=== PATIENT | female | born 1945 | race Caucasian/White ===

== ENCOUNTER 2023-12-04 16:10 | Inpatient (IN) | payer MEDICARE, OTHER ==
[~2023-12-04] VITALS: Ht 160 cm; Wt 59.0 kg
[2023-12-04 17:28] LABS: *BILIRUBIN,URIN NEGATIVE (NEGATIVE); *BLOOD, URINE 1+ (NEGATIVE); *CLARITY,URINE CLEAR (CLEAR); *COLOR,URINE YELLOW (YELLOW); *KETONES,URINE TRACE (NEGATIVE); *PROTEIN,URINE NEGATIVE (NEGATIVE); *UROBILINOGEN,URINE 0.2 E.U./dl (NORMAL); LEUKOCYTE ESTERASE ,URINE NEGATIVE (NEGATIVE); NITRITE, URINE POSITIVE (NEGATIVE); PH,URINE 5.5 (5.0-8.0); UGLUCOSE NEGATIVE (NEGATIVE)
[2023-12-04 17:33] LABS: BACTERIA,URINE MANY /HPF (NONE SEEN)
[2023-12-04 17:34] LABS: BASOPHILS % (AUTO) 0.6 % (0.0-2.0); EOSINOPHILS % (AUTO) 0.4 % (0.0-7.0); HEMATOCRIT 38.1 % (31.2-41.9); HEMOGLOBIN 12.7 g/dL (10.9-14.3); LYMPHOCYTES # (AUTO) 1.3 K/uL (0.8-4.8); LYMPHOCYTES % (AUTO) 15.4 % (20.5-51.5); MEAN CORPUSCULAR HEMOGLOBIN 32.3 uug (24.7-32.8); MEAN CORPUSCULAR HGB CONC 33 g/dL (32.3-35.6); MEAN CORPUSCULAR VOLUME 96.6 fL (75.5-95.3); MONOCYTES # (AUTO) 1.1 K/uL (0.1-1.30); MONOCYTES % (AUTO) 13.2 % (0.0-11.0); NEUTROPHILS # (AUTO) 5.9 K/uL (1.8-8.9); NEUTROPHILS % (AUTO) 70.4 % (38.5-71.5); PLATELET COUNT (AUTO) 166 K/uL (179-408); RED BLOOD CELL COUNT(AUTO) 3.94 MIL/uL (3.63-4.92); RED CELL DISTRIBUTION WIDTH 13.5 % (12.3-17.7); WHITE BLOOD COUNT (AUTO) 8.3 K/uL (3.8-11.8)
[2023-12-04 17:34] LABS: SQUAMOUS EPITHELIAL CELL,UR FEW /HPF (NONE SEEN)
[2023-12-04 17:43] LABS: *AMPHETAMINE, URINE NEGATIVE (NEGATIVE); *BARBITURATE, URINE NEGATIVE (NEGATIVE); *BENZODIAZEPINE, URINE NEGATIVE (NEGATIVE); *CANNABINOID, URINE NEGATIVE (NEGATIVE); *COCCAINE, URINE NEGATIVE (NEGATIVE); *OPIATE, URINE POSITIVE (NEGATIVE); *PHENCYCLIDINE SCREEN,URINE NEGATIVE (NEGATIVE)
[2023-12-04 17:56] LABS: AMMONIA < 10 umol/L (11-32)
[2023-12-04 17:59] LABS: THYROID STIMULATING HORMONE 1.731 mIU/mL (0.358-3.740)
[2023-12-04 18:03] LABS: CALCIUM 8.8 mg/dL (8.5-10.1); CARBON DIOXIDE 22 mmol/L (21-32); CHLORIDE 103 mmol/L (98-107); CREATININE 0.8 mg/dL (0.6-1.3); GLUCOSE 130 mg/dL (74-106); SODIUM SERUM 139 mmol/L (136-145); UREA NITROGEN, BLOOD 15 mg/dL (7-18)
[2023-12-04 18:05] LABS: FENTANYL, URINE POSITIVE (NEGATIVE)
[2023-12-04] MEDS ORDERED: CRAN400C PO (18:07)
[2023-12-04] MEDS ORDERED: ACET-2154 PO (18:07)
[2023-12-04] MEDS ORDERED: CYCLOSPORINE 0.05% EACHEYE (18:07)
[2023-12-04] MEDS ORDERED: LOSA25TA27 PO (18:07)
[2023-12-04] MEDS ORDERED: MAGN400O6 PO (18:07)
[2023-12-04] MEDS ORDERED: MULT-213 PO (18:07)
[2023-12-04] MEDS ORDERED: ASPI-869 PO (18:07)
[2023-12-04] MEDS ORDERED: PANT40TA49 PO (18:07)
[2023-12-04] MEDS ORDERED: POLY15DR31 OP (18:07)
[2023-12-04] MEDS ORDERED: FERR-56 PO (18:07)
[2023-12-04] MEDS ORDERED: DOCU-141 PO (18:07)
[2023-12-04] MEDS ORDERED: METO5TAB87 PO (18:07)
[2023-12-04] MEDS ORDERED: ONDA4TAB5 PO (18:07)
[2023-12-04] MEDS ORDERED: ACET-2605 PO (18:07)
[2023-12-04] MEDS ORDERED: TRAM100C3 PO (18:07)
[2023-12-04] MEDS ORDERED: HYDR-3972 PO (18:07)
[2023-12-04 18:09] LABS: ETHANOL < 3 MG/DL (0-10)
[2023-12-04 18:11] LABS: ALANINE AMINOTRANSFERASE 35 U/L (14-59); ALBUMIN 3.2 g/dL (3.4-5.0); ALKALINE PHOSPHATASE 86 U/L (50-136); ASPARTATE AMINOTRANSFERASE 21 U/L (15-37); BILIRUBIN,DIRECT 0.1 mg/dL (0.0-0.2); BILIRUBIN,TOTAL 0.3 mg/dL (0.2-1.0); TOTAL PROTEIN, SERUM 6.7 g/dL (6.4-8.2)
[2023-12-04 18:15] LABS: ACETAMINOPHEN < 2.0 ug/mL (10-30)
[2023-12-04 18:16] LABS: DIFFERENTIAL COMMENT 1
[2023-12-04] MEDS ORDERED: DEXTROSE 50% 50 ML DISP.SYRIN IV PRN (21:45)
[2023-12-04] MEDS ORDERED: INSULIN REGULAR, HUMAN 300 UNIT/3 ML VIAL SQ PRN (21:45)
[2023-12-04] MEDS ORDERED: REMEDY ESSENTIAL ZINC PASTE 113 GM TP PRN (21:45)
[2023-12-04] MEDS ORDERED: ONDANSETRON 4 MG/2 ML VIAL IV PRN (21:45)
[2023-12-04] MEDS: IV NS 1000 ML 1,000 ML IV PRN (23:32)
[2023-12-04] MEDS ORDERED: levoFLOXacin 500 MG/D5W 100 ML ONE (23:46)
[2023-12-04] MEDS: levoFLOXacin 500 MG/D5W 500 MG in PREMIXED 1 EACH IV ONE (23:50)
[2023-12-05 00:15] VITALS: BP 120/60; TEMP 98.1; O2SAT 92
[2023-12-05 05:55] VITALS: BP 130/61; TEMP 99.1; O2SAT 92
[2023-12-05] MEDS: BLOOD SUGAR DIAGNOSTIC 1 EACH STRIP VI SCH (06:38)
[2023-12-05 07:46] LABS: BASOPHILS % (AUTO) 0.7 % (0.0-2.0); EOSINOPHILS # (AUTO) 0.1 K/uL (0.0-0.7); EOSINOPHILS % (AUTO) 1.5 % (0.0-7.0); HEMATOCRIT 35.5 % (31.2-41.9); HEMOGLOBIN 11.9 g/dL (10.9-14.3); LYMPHOCYTES # (AUTO) 2.2 K/uL (0.8-4.8); LYMPHOCYTES % (AUTO) 31.3 % (20.5-51.5); MEAN CORPUSCULAR HEMOGLOBIN 32.9 uug (24.7-32.8); MEAN CORPUSCULAR HGB CONC 34 g/dL (32.3-35.6); MEAN CORPUSCULAR VOLUME 98.1 fL (75.5-95.3); MONOCYTES # (AUTO) 1.1 K/uL (0.1-1.30); MONOCYTES % (AUTO) 16.4 % (0.0-11.0); NEUTROPHILS # (AUTO) 3.5 K/uL (1.8-8.9); NEUTROPHILS % (AUTO) 50.1 % (38.5-71.5); PLATELET COUNT (AUTO) 148 K/uL (179-408); RED BLOOD CELL COUNT(AUTO) 3.61 MIL/uL (3.63-4.92); RED CELL DISTRIBUTION WIDTH 13.4 % (12.3-17.7); WHITE BLOOD COUNT (AUTO) 6.9 K/uL (3.8-11.8)
[2023-12-05 08:09] LABS: CALCIUM 8.5 mg/dL (8.5-10.1); CREATININE 0.7 mg/dL (0.6-1.3); MAGNESIUM 1.9 mg/dL (1.8-2.4); PHOSPHOROUS 3.8 mg/dL (2.5-4.9); POTASSIUM 4.1 mmol/L (3.5-5.1)
[2023-12-05] MEDS: PANTOPRAZOLE SODIUM 40 MG TABLET.DR PO SCH (08:30)
[2023-12-05] MEDS: LOSARTAN POTASSIUM 25 MG TABLET PO SCH (08:31)
[2023-12-05] MEDS: MULTIVITAMINS,THERAPEUTIC TABLET PO SCH (08:31)
[2023-12-05] MEDS: ENOXAPARIN SODIUM 40 MG/0.4 ML DISP.SYRIN SQ SCH (08:34)
[2023-12-05] MEDS: ASPIRIN EC 81 MG TABLET.DR PO SCH (08:44)
[2023-12-05] MEDS: DOCUSATE SODIUM 250 MG CAPSULE PO SCH (08:44)
[2023-12-05] MEDS ORDERED: DOCUSATE SODIUM 100 MG CAPSULE PO SCH (09:00)
[2023-12-05] MEDS ORDERED: ASPIRIN EC 325 MG TABLET.DR PO SCH (09:00)
[2023-12-05] MEDS: POLYVINYL ALCOHOL OPHT DROPS 15 ML BOTTLE OP SCH (09:21)
[2023-12-05 09:23] LABS: EOSINOPHILS % (MANUAL) 1 % (0-8); LYMPHOCYTES % (MANUAL) 31 % (20-40); MONOCYTES % (MANUAL) 14 % (2-10); NEUTROPHILS % (MANUAL) 54 % (42-75); PLATELET ESTIMATE DECREASED
[2023-12-05 09:24] LABS: ANISOCYTOSIS 1+
[2023-12-05 12:02] VITALS: BP 109/55; TEMP 98.1; O2SAT 94
[2023-12-05 16:31] VITALS: BP 104/50; TEMP 98; O2SAT 95
[2023-12-05 20:00] VITALS: BP 130/62; TEMP 98.1; O2SAT 94
[2023-12-05] MEDS: ACETAMINOPHEN 325 MG TABLET PO PRN (20:33)
[2023-12-06 04:44] VITALS: BP 117/46; TEMP 98; O2SAT 93
[2023-12-06] MEDS: levoFLOXacin 500 MG/D5W 500 MG in PREMIXED 1 EACH IV SCH (08:46)
[2023-12-06 11:23] LABS: BASOPHILS # (AUTO) 0.2 K/UL (0.0-0.2); BASOPHILS % (AUTO) 2.6 % (0.0-2.0); EOSINOPHILS # (AUTO) 0.2 K/uL (0.0-0.7); EOSINOPHILS % (AUTO) 2.5 % (0.0-7.0); HEMATOCRIT 35.9 % (31.2-41.9); HEMOGLOBIN 11.9 g/dL (10.9-14.3); LYMPHOCYTES # (AUTO) 1.6 K/uL (0.8-4.8); LYMPHOCYTES % (AUTO) 26.4 % (20.5-51.5); MEAN CORPUSCULAR HEMOGLOBIN 32.3 uug (24.7-32.8); MEAN CORPUSCULAR HGB CONC 33 g/dL (32.3-35.6); MEAN CORPUSCULAR VOLUME 97.1 fL (75.5-95.3); MONOCYTES # (AUTO) 0.5 K/uL (0.1-1.30); MONOCYTES % (AUTO) 8.1 % (0.0-11.0); NEUTROPHILS # (AUTO) 3.8 K/uL (1.8-8.9); NEUTROPHILS % (AUTO) 60.4 % (38.5-71.5); PLATELET COUNT (AUTO) 151 K/uL (179-408); RED CELL DISTRIBUTION WIDTH 13.5 % (12.3-17.7); WHITE BLOOD COUNT (AUTO) 6.2 K/uL (3.8-11.8)
[2023-12-06 11:27] LABS: DIFFERENTIAL COMMENT 1
[2023-12-06 11:34] LABS: CALCIUM 8.7 mg/dL (8.5-10.1); CARBON DIOXIDE 24 mmol/L (21-32); CHLORIDE 108 mmol/L (98-107); CREATININE 0.8 mg/dL (0.6-1.3); GLUCOSE 128 mg/dL (74-106); SODIUM SERUM 141 mmol/L (136-145); UREA NITROGEN, BLOOD 14 mg/dL (7-18)
[2023-12-06 12:00] VITALS: BP 137/60; TEMP 98.3; O2SAT 90
[2023-12-06 16:00] VITALS: BP 133/73; TEMP 97.8; O2SAT 97
[2023-12-06 20:00] VITALS: BP 153/67; TEMP 98.1; O2SAT 95
[2023-12-06] MEDS: GUAIFENESIN/DEXTROMETHORPHAN 5 ML UDC PO PRN (21:07)
[2023-12-07 05:30] VITALS: BP 150/62; TEMP 97.9; O2SAT 95
[2023-12-07 06:31] LABS: BASOPHILS % (AUTO) 0.6 % (0.0-2.0); EOSINOPHILS # (AUTO) 0.2 K/uL (0.0-0.7); EOSINOPHILS % (AUTO) 2.8 % (0.0-7.0); HEMATOCRIT 35.6 % (31.2-41.9); HEMOGLOBIN 12.1 g/dL (10.9-14.3); LYMPHOCYTES # (AUTO) 2.1 K/uL (0.8-4.8); LYMPHOCYTES % (AUTO) 32.5 % (20.5-51.5); MEAN CORPUSCULAR HEMOGLOBIN 32.9 uug (24.7-32.8); MEAN CORPUSCULAR HGB CONC 34 g/dL (32.3-35.6); MONOCYTES # (AUTO) 0.6 K/uL (0.1-1.30); NEUTROPHILS # (AUTO) 3.4 K/uL (1.8-8.9); NEUTROPHILS % (AUTO) 54.1 % (38.5-71.5); PLATELET COUNT (AUTO) 155 K/uL (179-408); RED BLOOD CELL COUNT(AUTO) 3.66 MIL/uL (3.63-4.92); WHITE BLOOD COUNT (AUTO) 6.4 K/uL (3.8-11.8)
[2023-12-07 06:39] LABS: DIFFERENTIAL COMMENT 1
[2023-12-07 06:45] LABS: CALCIUM 8.8 mg/dL (8.5-10.1); CARBON DIOXIDE 25 mmol/L (21-32); CHLORIDE 108 mmol/L (98-107); CREATININE 0.7 mg/dL (0.6-1.3); GLUCOSE 108 mg/dL (74-106); POTASSIUM 3.7 mmol/L (3.5-5.1); SODIUM SERUM 141 mmol/L (136-145); UREA NITROGEN, BLOOD 15 mg/dL (7-18)
[2023-12-07 08:24] VITALS: BP 150/62
[2023-12-07] MEDS ORDERED: LEVO500T90 PO (10:20)
== END 2023-12-07 13:00 | DRG 917 ==
LOC: ER 16:12 → MEDSURG3 19:00
PROVIDERS: ADMIT Nurse Practitioner Acute Care; ATTEND Nurse Practitioner Acute Care
DX: T40.411A Poisoning by fentanyl or fentanyl analogs, accidental (unintentional), initial encounter (principal); G92.8 Other toxic encephalopathy; I69.351 Hemiplegia and hemiparesis following cerebral infarction affecting right dominant side; N39.0 Urinary tract infection, site not specified; E44.1 Mild protein-calorie malnutrition; J98.11 Atelectasis; Y92.122 Bedroom in nursing home as the place of occurrence of the external cause; I69.320 Aphasia following cerebral infarction; I67.1 Cerebral aneurysm, nonruptured; Z95.1 Presence of aortocoronary bypass graft; Z88.0 Allergy status to penicillin; Z88.1 Allergy status to other antibiotic agents; R33.9 Retention of urine, unspecified; B96.89 Other specified bacterial agents as the cause of diseases classified elsewhere; Z87.891 Personal history of nicotine dependence; K44.9 Diaphragmatic hernia without obstruction or gangrene; K57.30 Diverticulosis of large intestine without perforation or abscess without bleeding; G40.909 Epilepsy, unspecified, not intractable, without status epilepticus; E78.5 Hyperlipidemia, unspecified; R23.0 Cyanosis; K41.20 Bilateral femoral hernia, without obstruction or gangrene, not specified as recurrent; E88.09 Other disorders of plasma-protein metabolism, not elsewhere classified; M62.421 Contracture of muscle, right upper arm; E11.9 Type 2 diabetes mellitus without complications; I10 Essential (primary) hypertension; I25.10 Atherosclerotic heart disease of native coronary artery without angina pectoris; K43.9 Ventral hernia without obstruction or gangrene; G93.89 Other specified disorders of brain; F03.90 Unspecified dementia, unspecified severity, without behavioral disturbance, psychotic disturbance, mood disturbance, and anxiety; Z79.82 Long term (current) use of aspirin; Z79.899 Other long term (current) drug therapy
CPT/HCPCS: 36415; 70030-TC; 70450; 71045; 74018; 83605; 83690; 83735; 84100; 84443; 84484; 85025; 85730; 87040; 93005; A4606; A4663; C1758; G0378; G0480; J1650; J1815; J1956; J7040

== ENCOUNTER 2025-06-11 19:52 | Inpatient (IN) | payer MEDICARE, OTHER ==
[~2025-06-11] VITALS: Ht 157.5 cm; Wt 62.6 kg
[2025-06-11 19:40] VITALS: BP 117/57; TEMP 99; O2SAT 95
[~2025-06-11 19:52] MED LIST: ACET-2154 PO; ACET-2605 PO; ASPI-869 PO; CRAN400C PO; CYCLOSPORINE 0.05% EACHEYE; DOCU-141 PO; FERR-56 PO; HYDR-3972 PO; LEVO500T90 PO; LOSA25TA27 PO; MAGN400O6 PO; METO5TAB87 PO; MULT-213 PO; ONDA4TAB5 PO; PANT40TA49 PO; POLY15DR31 OP; TRAM100C3 PO
[2025-06-11] MEDS ORDERED: MAGNESIUM HYDROXIDE 30 ML LIQUID UDC PO PRN (21:45)
[2025-06-11] MEDS ORDERED: ONDANSETRON 4 MG/2 ML VIAL IV PRN (21:45)
[2025-06-11] MEDS ORDERED: REMEDY ESSENTIAL ZINC PASTE 113 GM TP PRN (21:45)
[2025-06-11] MEDS: IV 1/2NS 1000 ML 1,000 ML IV PRN (22:08)
[2025-06-11] MEDS: MORPHINE SULFATE 2 MG/1 ML DISP.SYRIN IV PRN (22:55)
[2025-06-12] MEDS: HYDROCODONE/APAP 5-325MG TABLET PO PRN (05:01)
[2025-06-12 05:42] VITALS: BP 124/54; TEMP 98.9; O2SAT 91
[2025-06-12 06:57] LABS: PLATELET COUNT (AUTO) 219 K/uL (179-408); RED BLOOD CELL COUNT(AUTO) 3.65 MIL/uL (3.63-4.92); RED CELL DISTRIBUTION WIDTH 13.1 % (12.3-17.7); WHITE BLOOD COUNT (AUTO) 7.0 K/uL (3.8-11.8)
[2025-06-12 07:10] LABS: CREATININE 0.8 mg/dL (0.6-1.3); SODIUM SERUM 141 mmol/L (136-145); UREA NITROGEN, BLOOD 11 mg/dL (7-18)
[2025-06-12] MEDS: PANTOPRAZOLE SODIUM 40 MG VIAL IV SCH (08:18)
[2025-06-12 12:00] VITALS: BP 105/61; TEMP 98.2; O2SAT 97
[2025-06-12] MEDS ORDERED: MAG30ORA PO (12:17)
[2025-06-12] MEDS ORDERED: ASPI81TA31 PO (12:18)
[2025-06-12] MEDS ORDERED: BISA10SU11 RC (12:20)
[2025-06-12] MEDS ORDERED: INSU100V28 SQ (12:22)
[2025-06-12] MEDS ORDERED: OMEP20CA15 PO (12:22)
[2025-06-12] MEDS ORDERED: TEMA15CA PO (12:23)
[2025-06-12] MEDS ORDERED: MAG HYDROX/AL HYDROX/SIMETH 30 ML LIQUID UDC PO PRN (14:30)
[2025-06-12] MEDS ORDERED: TEMAZEPAM 7.5 MG CAPSULE PO PRN (14:30)
[2025-06-12] MEDS ORDERED: MAGNESIUM HYDROXIDE 30 ML LIQUID UDC PO PRN (14:30)
[2025-06-12] MEDS ORDERED: BISACODYL 10 MG SUPP.RECT RC PRN (14:30)
[2025-06-12 16:00] VITALS: BP 111/57; TEMP 99; O2SAT 96
[2025-06-12] MEDS: DOCUSATE SODIUM 100 MG CAPSULE PO SCH (16:19)
[2025-06-12 16:50] LABS: ASPARTATE AMINOTRANSFERASE 25.0 U/L (15-37); TOTAL PROTEIN, SERUM 6.1 g/dL (6.4-8.2)
[2025-06-12 19:20] VITALS: BP 145/68; TEMP 99.2; O2SAT 99
[2025-06-13 05:45] VITALS: BP 118/62; TEMP 98.8; O2SAT 93
[2025-06-13 06:35] LABS: CREATININE 0.6 mg/dL (0.6-1.3); SODIUM SERUM 144 mmol/L (136-145); UREA NITROGEN, BLOOD 7 mg/dL (7-18)
[2025-06-13 06:46] LABS: PLATELET COUNT (AUTO) 217 K/uL (179-408); RED BLOOD CELL COUNT(AUTO) 3.63 MIL/uL (3.63-4.92); RED CELL DISTRIBUTION WIDTH 13.3 % (12.3-17.7); WHITE BLOOD COUNT (AUTO) 8.0 K/uL (3.8-11.8)
[2025-06-13] MEDS: MULTIVIT, IRON, MIN NO. 8, FA TABLET PO SCH (08:10)
[2025-06-13] MEDS: ASPIRIN 81 MG TAB.CHEW PO SCH (08:13)
[2025-06-13] MEDS ORDERED: Medication Not On Formulary EA (Multivitamins W-Minerals (Multivitamin With Minerals) 1 PO SCH (09:00)
[2025-06-13 11:33] VITALS: BP 127/51; TEMP 97.9; O2SAT 93
[2025-06-13 15:47] VITALS: BP 126/65; TEMP 98; O2SAT 94
[2025-06-13 19:15] VITALS: BP_SYST 120; BP_DIAS 61; BP_DIAS 66; TEMP 98.5; O2SAT 95
[2025-06-13] MEDS: MUPIROCIN 2% OINT 22 GM TUBE NS SCH (20:57)
[2025-06-14] MEDS: PANTOPRAZOLE SODIUM 40 MG TABLET.DR PO SCH (06:07)
[2025-06-14 06:44] LABS: PLATELET COUNT (AUTO) 198 K/uL (179-408); RED BLOOD CELL COUNT(AUTO) 3.61 MIL/uL (3.63-4.92); RED CELL DISTRIBUTION WIDTH 13.3 % (12.3-17.7); WHITE BLOOD COUNT (AUTO) 6.3 K/uL (3.8-11.8)
[2025-06-14 06:46] VITALS: BP 144/58; TEMP 98.5; O2SAT 93
[2025-06-14 06:54] LABS: CREATININE 0.6 mg/dL (0.6-1.3); SODIUM SERUM 144 mmol/L (136-145); UREA NITROGEN, BLOOD 6 mg/dL (7-18)
[2025-06-14 08:20] VITALS: BP 150/97; TEMP 98.1; O2SAT 94
[2025-06-14 09:18] VITALS: BP 138/83; O2SAT 94
[2025-06-14 10:55] VITALS: BP 114/70; TEMP 98.7; O2SAT 95
[2025-06-14] MEDS ORDERED: MUPI22OI2 NS (13:16)
[2025-06-14 15:35] VITALS: BP 130/69; TEMP 97.8; O2SAT 94
[2025-06-14 17:37] VITALS: TEMP 98
[2025-06-14] MEDS: ACETAMINOPHEN 325 MG TABLET PO PRN (17:37)
== END 2025-06-14 17:45 | DRG 392 ==
LOC: MEDSURG3 19:52
PROVIDERS: ADMIT Internal Medicine; ATTEND Internal Medicine
DX: A08.4 Viral intestinal infection, unspecified (principal); D68.59 Other primary thrombophilia; Z66 Do not resuscitate; I69.351 Hemiplegia and hemiparesis following cerebral infarction affecting right dominant side; F01.54 Vascular dementia, unspecified severity, with anxiety; E11.65 Type 2 diabetes mellitus with hyperglycemia; D75.89 Other specified diseases of blood and blood-forming organs; I50.32 Chronic diastolic (congestive) heart failure; G40.909 Epilepsy, unspecified, not intractable, without status epilepticus; I11.0 Hypertensive heart disease with heart failure; K43.2 Incisional hernia without obstruction or gangrene; Z22.322 Carrier or suspected carrier of Methicillin resistant Staphylococcus aureus; F17.210 Nicotine dependence, cigarettes, uncomplicated; K44.9 Diaphragmatic hernia without obstruction or gangrene; Z79.4 Long term (current) use of insulin; Z79.899 Other long term (current) drug therapy; Z79.82 Long term (current) use of aspirin; I25.10 Atherosclerotic heart disease of native coronary artery without angina pectoris; Z95.1 Presence of aortocoronary bypass graft; Z88.1 Allergy status to other antibiotic agents; Z88.0 Allergy status to penicillin
CPT/HCPCS: 36415; 71045; 83690; 83735; 84100; 84443; 85025; 97535-GO-CO; A4663; G0378; J2270; J2470